=== PATIENT | male | born 1960 | race Caucasian/White ===

== ENCOUNTER 2022-02-20 08:21 | Inpatient (IN) | payer BC ==
[2022-02-20] MEDS ORDERED: Nozin Nasal Sanitizer NASBOTH SCH (08:30)
[2022-02-20] MEDS ORDERED: Midazolam 1 MG/ML 2 ML SDV ONE (08:33)
[2022-02-20] MEDS ORDERED: Propofol 200 MG/20 ML SDV ONE (08:33)
[2022-02-20] MEDS ORDERED: fentaNYL 100 MCG/2 ML SDV ONE (08:33)
[2022-02-20] MEDS ORDERED: Lactated Ringers 1,000 ML IV SCH (09:00)
[2022-02-20 09:12] LABS: ESTIMATED GFR 101 mL/min (>60)
[2022-02-20] MEDS ORDERED: Succinylcholine 200 MG/10 ML MDV ONE (09:24)
[2022-02-20] MEDS ORDERED: Dexamethasone 4 MG/ML SDV ONE (09:24)
[2022-02-20] MEDS ORDERED: Ondansetron 4 MG/2 ML SDV ONE (09:24)
[2022-02-20] MEDS ORDERED: Rocuronium 50 MG/5 ML Vial ONE (09:24)
[2022-02-20] MEDS ORDERED: Neostigmine Methylsulfate 1 MG/ML 5 ML Syringe ONE (09:24)
[2022-02-20] MEDS ORDERED: Glycopyrrolate 0.2 MG/ML 5 ML MDV ONE (09:24)
[2022-02-20] MEDS ORDERED: fentaNYL 250 MCG/5 ML SDV ONE ×2 (09:26→12:03)
[2022-02-20] MEDS ORDERED: ceFAZolin 2 GM in Premix Bag 1 BAG IV ONE (09:30)
[2022-02-20] MEDS ORDERED: Bupivacaine 0.5% 50 ML MDV ONE (10:59)
[2022-02-20] MEDS ORDERED: Bupivacaine 0.5% 50 ML MDV INJECT ONE ×2 (12:05)
[2022-02-20] MEDS ORDERED: Lactated Ringers 1,000 ML ONE (13:23)
[2022-02-20] MEDS ORDERED: Ketorolac 30 MG/ML SDV ONE (13:36)
[2022-02-20] MEDS ORDERED: Ondansetron 4 MG/2 ML SDV IVPUSH PRN (13:42)
[2022-02-20] MEDS ORDERED: traMADol 50 MG Tab PO PRN (13:42)
[2022-02-20] MEDS ORDERED: HYDROmorphone 0.5 MG/0.5 ML Syringe IVPUSH PRN (13:42)
[2022-02-20] MEDS ORDERED: Acetaminophen 500 MG Tab PO SCH (13:45)
[2022-02-20] MEDS ORDERED: Morphine 2 MG/ML SYRINGE IVPUSH ONE (13:52)
[2022-02-20] MEDS: Acetaminophen 500 MG Tab PO SCH ×2 (14:54→20:14)
[2022-02-20] MEDS: Sodium Chloride 0.9% 1,000 ML IV SCH (17:13)
[2022-02-20] MEDS: ceFAZolin 1 GM in Premix Bag 1 BAG IV SCH (17:14)
[2022-02-20] MEDS: Nozin Nasal Sanitizer NASBOTH SCH (22:13)
[2022-02-20] MEDS: Docusate Sodium 100 MG Cap PO SCH (22:17)
[2022-02-20] MEDS: Ketorolac 30 MG/ML SDV IVPUSH SCH (22:18)
[2022-02-21] MEDS: Sodium Chloride 0.9% 1,000 ML IV SCH (01:38)
[2022-02-21] MEDS: Acetaminophen 500 MG Tab PO SCH ×4 (01:50→20:21)
[2022-02-21] MEDS: ceFAZolin 1 GM in Premix Bag 1 BAG IV SCH ×2 (01:50→10:41)
[2022-02-21] MEDS: Ketorolac 30 MG/ML SDV IVPUSH SCH (05:58)
[2022-02-21] MEDS ORDERED: Enoxaparin 30 MG/0.3 ML Syringe SUBCUT SCH (09:00)
[2022-02-21] MEDS ORDERED: Celecoxib 200 MG Cap PO SCH (09:00)
[2022-02-21] MEDS: Docusate Sodium 100 MG Cap PO SCH ×2 (10:41→21:43)
[2022-02-21] MEDS: Nozin Nasal Sanitizer NASBOTH SCH ×2 (10:44→21:43)
[2022-02-21] MEDS: oxyCODONE 5 MG Tab PO PRN ×3 (12:07→21:42)
[2022-02-21] MEDS: Celecoxib 200 MG Cap PO SCH (21:43)
[2022-02-22] MEDS: Acetaminophen 500 MG Tab PO SCH ×2 (01:38→07:33)
[2022-02-22] MEDS: oxyCODONE 5 MG Tab PO PRN ×3 (01:41→13:14)
[2022-02-22] MEDS ORDERED: Aspirin 81 MG Tab.Chew PO SCH (09:00)
[2022-02-22] MEDS: Docusate Sodium 100 MG Cap PO SCH (09:22)
[2022-02-22] MEDS: Nozin Nasal Sanitizer NASBOTH SCH (09:22)
[2022-02-22] MEDS: Celecoxib 200 MG Cap PO SCH (09:22)
== END 2022-02-22 13:45 | disposition home or self-care (01) | DRG 302 ==
LOC: JP.SDS 08:21 → JP.MS 13:42 → JP.SDS 02-21 16:44 → JP.MS 02-21 16:45
PROVIDERS: ADMIT Specialist; ATTEND Specialist
PROC: 0SRC0J9 Replacement of Right Knee Joint with Synthetic Substitute, Cemented, Open Approach (ICD-10-PCS; principal; 2022-02-20)
DX: M17.11 Unilateral primary osteoarthritis, right knee (principal); D64.9 Anemia, unspecified; Z20.822 Contact with and (suspected) exposure to COVID-19; Z79.899 Other long term (current) drug therapy
CPT/HCPCS: 36415; 73560-26-RT; 73560-RT; 80053; 85027; 97110-GP; 97116-GP; 97161-GP; 97530-GP; 97535-GO; 97535-GP; A9270-GY; C1713; C1776; J0330; J0690; J1100; J1650; J1885; J2250; J2270; J2405; J2704; J2710; J3010; J3490; J7030; J7120; U0002

== ENCOUNTER 2025-07-22 17:59 | Emergency (ER) | payer OTHER ==
[2025-07-22 18:22] LABS: BASOPHILS ABSOLUTE AUTO 0.07 K/uL (0.00-0.10); BASOPHILS PERCENT AUTO 1.1 % (0.1-1.3); EOSINOPHILS ABSOLUTE AUTO 0.13 K/uL (0.00-0.40); EOSINOPHILS PERCENT AUTO 2.0 % (0.0-5.4); IMMATURE GRAN PERCENT AUTO 0.3 % (0.0-0.7); LYMPHOCYTES ABSOLUTE AUTO 1.76 K/uL (0.8-3.3); LYMPHOCYTES PERCENT AUTO 27.7 % (11.4-47.7); MONOCYTES ABSOLUTE AUTO 0.68 K/uL (0.20-0.90); MONOCYTES PERCENT AUTO 10.7 % (3.3-12.6); NEUTROPHILS ABSOLUTE AUTO 3.69 K/uL (1.0-7.6); NEUTROPHILS PERCENT AUTO 58.2 % (40.0-78.1); PLATELET COUNT,PLT 299 K/uL (130-375); RED BLOOD CELL COUNT 4.91 M/uL (4.14-5.76); WHITE BLOOD CELL COUNT,WBC 6.4 K/uL (3.2-11.0)
[2025-07-22 18:23] LABS: IMMATURE GRAN ABSOLUTE AUTO 0.02 K/uL (0.00-0.23)
== END 2025-07-22 20:27 | disposition home or self-care (01) ==
LOC: JP.ED 17:59
DX: S06.0X1A Concussion with loss of consciousness of 30 minutes or less, initial encounter (principal); Z79.899 Other long term (current) drug therapy; W00.0XXA Fall on same level due to ice and snow, initial encounter
CPT/HCPCS: 36415; 70450; 72125; 73030-26-RT; 73030-RT; 76377; 85025; 99284